=== PATIENT | female | born 1940 | race Two or more races ===

== ENCOUNTER 2021-12-05 14:44 | Inpatient (IN) | payer OTHER ==
[~2021-12-05] VITALS: Ht 157.5 cm; Wt 62.9 kg
[2021-12-05] MEDS ORDERED: hydrALAZINE HCL 20 MG/ML VL IV ONE (16:00)
[2021-12-05] MEDS ORDERED: NITROGLYCERIN 0.4 MG SL TAB SL ONE (16:30)
[2021-12-05 16:45] LABS: Basophils # (auto) 0 10 ^3/uL (0-0.2); Basophils % (auto) 0.3 % (0.0-2.0); Eosinophils # (auto) 0 10 ^3/uL (0-0.8); Eosinophils % (auto) 0.1 % (0.0-7.0); Hematocrit 43.2 % (36.0-46.0); Hemoglobin 15.3 g/dL (12.2-16.2); Lymphocytes # (auto) 1.3 10 ^3/uL (0.4-5.4); Lymphocytes % (auto) 17.2 % (10.0-50.0); Mean Corpuscular Hemoglobin 33.1 pg (28.0-32.0); Mean Corpuscular Hgb Conc. 35.5 g/dL (32.0-36.0); Mean Corpuscular Volume 93.3 fL (80.0-100.0); Monocytes # (auto) 0.4 10 ^3/uL (0-1.3); Monocytes % (auto) 5.5 % (0.0-12.0); Neutrophils # (auto) 5.6 10 ^3/uL (1.6-8.6); Neutrophils % (auto) 76.9 % (37.0-80.0); Red Blood Cells 4.63 10^6/uL (4.0-5.20); Red Cell Distribution Width 13.8 % (11.8-14.3); White Blood Cell 7.3 10^3/uL (4.4-10.8)
[2021-12-05] MEDS ORDERED: cloNIDine HCL 0.1 MG TAB PO ONE (17:00)
[2021-12-05] MEDS ORDERED: amLODIPine BESYLATE 5 MG TAB PO ONE (17:00)
[2021-12-05 17:06] LABS: Albumin 4.1 g/dL (3.4-5.0); Calcium 9.5 mg/dL (8.5-10.1); Potassium 4.6 mmol/L (3.5-5.1)
[2021-12-05 17:08] LABS: Bilirubin, Total 0.4 mg/dL (0.2-1.0); Total Protein 7.4 g/dL (6.4-8.2)
[2021-12-05] MEDS ORDERED: ALPRAZolam 0.5 MG TAB PO ONE (18:45)
[2021-12-05] MEDS ORDERED: SODIUM CHLORIDE 0.9% 500 ML IV ONE (19:45)
[2021-12-05] MEDS ORDERED: DEXTROSE (50%) 50ML SYRG IV PRN (20:00)
[2021-12-05 21:30] VITALS: BP 138/61
[2021-12-05] MEDS ORDERED: InsuLIN REG 1unit/0.01ml Soln (100units/ml) SC SCH (22:00)
[2021-12-05] MEDS: ACCU-CHEK COMFORT CURVE STRIP VI SCH (22:04)
[2021-12-05 22:28] VITALS: BP 138/61
[2021-12-05] MEDS ORDERED: CLON0.1T PO (22:36)
[2021-12-05] MEDS ORDERED: ALPR0.5T8 PO (22:36)
[2021-12-05] MEDS ORDERED: MET50T PO (22:36)
[2021-12-05] MEDS ORDERED: LOSA-69 PO (22:36)
[2021-12-06] VITALS (13 sets, daily range): BP systolic 122–260; BP diastolic 50–96
[2021-12-06] MEDS ORDERED: cloNIDine HCL 0.1 MG TAB PO ONE ×2 (05:15→15:30)
[2021-12-06] MEDS ORDERED: ALPRAZolam 0.5 MG TAB PO ONE (05:15)
[2021-12-06 05:26] LABS: Basophils # (auto) 0 10 ^3/uL (0-0.2); Basophils % (auto) 0.6 % (0.0-2.0); Eosinophils # (auto) 0 10 ^3/uL (0-0.8); Eosinophils % (auto) 0.8 % (0.0-7.0); Hematocrit 40.3 % (36.0-46.0); Hemoglobin 14.3 g/dL (12.2-16.2); Lymphocytes # (auto) 1.7 10 ^3/uL (0.4-5.4); Lymphocytes % (auto) 38.3 % (10.0-50.0); Mean Corpuscular Hgb Conc. 35.5 g/dL (32.0-36.0); Monocytes # (auto) 0.5 10 ^3/uL (0-1.3); Monocytes % (auto) 10.4 % (0.0-12.0); Neutrophils # (auto) 2.2 10 ^3/uL (1.6-8.6); Neutrophils % (auto) 49.9 % (37.0-80.0); Red Blood Cells 4.33 10^6/uL (4.0-5.20); Red Cell Distribution Width 14.1 % (11.8-14.3); White Blood Cell 4.4 10^3/uL (4.4-10.8)
[2021-12-06 05:41] LABS: Albumin 3.8 g/dL (3.4-5.0); Calcium 9.4 mg/dL (8.5-10.1); Potassium 3.6 mmol/L (3.5-5.1)
[2021-12-06 05:43] LABS: BUN/Creatinine Ratio 17.3
[2021-12-06 05:46] LABS: Bilirubin, Total 0.5 mg/dL (0.2-1.0); Total Protein 7.2 g/dL (6.4-8.2)
[2021-12-06 05:52] LABS: Urine Bacteria FEW /hpf (None Seen); Urine Blood Negative /uL (Negative); Urine Hyaline Cast FEW /lpf (0 - 2); Urine Mucus FEW (None Seen); Urine Specific Gravity 1.007 (1.001-1.035); Urine WBC 5 /hpf (0 - 5)
[2021-12-06] MEDS: InsuLIN REG 1unit/0.01ml Soln (100units/ml) SC SCH ×2 (06:37→11:30)
[2021-12-06] MEDS: ACCU-CHEK COMFORT CURVE STRIP VI SCH (06:37)
[2021-12-06] MEDS: ENOXAPARIN SOD 40 MG/0.4 ML SYRINGE SC SCH ×2 (09:26→10:00)
[2021-12-06 13:16] LABS: Cholesterol 152 mg/dL (< 200); HDL Cholesterol 74 mg/dL (40-59); LDL Cholesterol 67 mg/dL (< 100); Triglycerides 37 mg/dL (< 150)
[2021-12-06] MEDS: METOPROLOL TARTRATE 50 MG TAB PO SCH ×2 (13:37→22:00)
[2021-12-06] MEDS: LOSARTAN POTASSIUM 50 MG TAB PO SCH ×2 (13:37→21:10)
[2021-12-06] MEDS: ALPRAZolam 0.5 MG TAB PO SCH ×2 (13:38→21:10)
[2021-12-06] MEDS ORDERED: hydrALAZINE HCL 20 MG/ML VL IV ONE (15:00)
[2021-12-06] MEDS ORDERED: cloNIDine 0.3 mg/24hr 7DAY PATCH TD ONE (15:30)
[2021-12-06] MEDS: cloNIDine HCL 0.1 MG TAB PO SCH (21:11)
[2021-12-07] VITALS (38 sets, daily range): BP systolic 88–205; BP diastolic 39–88
[2021-12-07] MEDS: ALPRAZolam 0.5 MG TAB PO SCH ×3 (05:06→21:09)
[2021-12-07] MEDS: cloNIDine HCL 0.1 MG TAB PO SCH ×2 (09:36→21:07)
[2021-12-07] MEDS: LOSARTAN POTASSIUM 50 MG TAB PO SCH ×2 (09:37→21:08)
[2021-12-07] MEDS: METOPROLOL TARTRATE 50 MG TAB PO SCH ×2 (09:38→21:09)
[2021-12-07] MEDS: ENOXAPARIN SOD 40 MG/0.4 ML SYRINGE SC SCH (09:40)
[2021-12-07] MEDS ORDERED: DOXAZOSIN MESYL 2 MG TAB PO ONE (13:30)
[2021-12-07] MEDS ORDERED: cefTRIAXone 1GM/50ML D5W 50 ML IV ONE (13:45)
[2021-12-08] VITALS (54 sets, daily range): BP systolic 85–248; BP diastolic 37–122
[2021-12-08] MEDS: ALPRAZolam 0.5 MG TAB PO SCH ×3 (05:47→21:05)
[2021-12-08 06:23] LABS: Potassium 3.7 mmol/L (3.5-5.1)
[2021-12-08 06:35] LABS: BUN/Creatinine Ratio 32.1; Calcium 9.4 mg/dL (8.5-10.1)
[2021-12-08] MEDS: LOSARTAN POTASSIUM 50 MG TAB PO SCH ×2 (09:25→21:06)
[2021-12-08] MEDS: cloNIDine HCL 0.1 MG TAB PO SCH ×2 (09:26→21:07)
[2021-12-08] MEDS: ENOXAPARIN SOD 40 MG/0.4 ML SYRINGE SC SCH (10:00)
[2021-12-08] MEDS: METOPROLOL TARTRATE 50 MG TAB PO SCH ×2 (10:56→21:06)
[2021-12-08] MEDS: DOXAZOSIN MESYL 2 MG TAB PO SCH (10:57)
[2021-12-08] MEDS: cefTRIAXone 1GM/50ML D5W 50 ML IV SCH (10:57)
[2021-12-08] MEDS ORDERED: DOCUSATE SOD 100 MG CAP PO PRN (12:45)
[2021-12-09] VITALS (16 sets, daily range): BP systolic 87–216; BP diastolic 37–101
[2021-12-09] MEDS: ALPRAZolam 0.5 MG TAB PO SCH ×3 (05:33→22:00)
[2021-12-09] MEDS: DOXAZOSIN MESYL 2 MG TAB PO SCH (09:00)
[2021-12-09] MEDS: cefTRIAXone 1GM/50ML D5W 50 ML IV SCH (09:00)
[2021-12-09] MEDS: cloNIDine HCL 0.1 MG TAB PO SCH ×2 (09:01→22:00)
[2021-12-09] MEDS: LOSARTAN POTASSIUM 50 MG TAB PO SCH ×2 (09:01→22:00)
[2021-12-09] MEDS: ENOXAPARIN SOD 40 MG/0.4 ML SYRINGE SC SCH ×3 (09:02→10:00)
[2021-12-09] MEDS: METOPROLOL TARTRATE 50 MG TAB PO SCH ×2 (09:02→22:00)
[2021-12-09] MEDS ORDERED: LACTULOSE 20Gm/30ML SOLN PO ONE (10:30)
[2021-12-09] MEDS ORDERED: POLYETHYLENE GLYCOL 17 GM PWDR PO ONE (10:30)
[2021-12-09] MEDS ORDERED: MINOXIDIL 2.5 MG TAB PO ONE (18:30)
[2021-12-09] MEDS ORDERED: NIFEdipine ER 30 MG TAB PO ONE (19:00)
[2021-12-10 05:00] VITALS: BP 182/77
[2021-12-10] MEDS ORDERED: MINOXIDIL 2.5 MG TAB PO SCH (06:30)
[2021-12-10] MEDS: ALPRAZolam 0.5 MG TAB PO SCH ×3 (06:32→22:09)
[2021-12-10 09:00] VITALS: BP 116/66
[2021-12-10] MEDS: cloNIDine HCL 0.1 MG TAB PO SCH ×2 (09:55→22:08)
[2021-12-10] MEDS: METOPROLOL TARTRATE 50 MG TAB PO SCH ×2 (09:56→22:09)
[2021-12-10] MEDS: LOSARTAN POTASSIUM 50 MG TAB PO SCH ×2 (09:56→22:00)
[2021-12-10] MEDS: ENOXAPARIN SOD 40 MG/0.4 ML SYRINGE SC SCH ×2 (09:56→10:00)
[2021-12-10] MEDS ORDERED: NIFEdipine ER 30 MG TAB PO SCH (10:00)
[2021-12-10 13:00] VITALS: BP_SYST 168; BP_SYST 99; BP_DIAS 65; BP_DIAS 73
[2021-12-10 16:58] VITALS: BP 158/74
[2021-12-10] MEDS: MINOXIDIL 2.5 MG TAB PO SCH (18:15)
[2021-12-10 22:00] VITALS: BP 152/74
[2021-12-11] VITALS (7 sets, daily range): BP systolic 109–254; BP diastolic 39–134
[2021-12-11] MEDS ORDERED: cloNIDine HCL 0.1 MG TAB PO ONE (05:30)
[2021-12-11] MEDS: ALPRAZolam 0.5 MG TAB PO SCH ×3 (06:03→20:56)
[2021-12-11] MEDS: MINOXIDIL 2.5 MG TAB PO SCH ×2 (06:30→18:21)
[2021-12-11] MEDS: cloNIDine HCL 0.1 MG TAB PO SCH ×3 (09:37→22:40)
[2021-12-11] MEDS: LOSARTAN POTASSIUM 50 MG TAB PO SCH ×2 (09:37→22:42)
[2021-12-11] MEDS: METOPROLOL TARTRATE 50 MG TAB PO SCH ×2 (09:38→22:42)
[2021-12-11] MEDS ORDERED: cloNIDine HCL 0.1 MG TAB PO SCH (10:00)
[2021-12-12 05:00] VITALS: BP 140/89
[2021-12-12] MEDS: cloNIDine HCL 0.1 MG TAB PO SCH (06:37)
[2021-12-12] MEDS: ALPRAZolam 0.5 MG TAB PO SCH ×2 (06:38→14:00)
[2021-12-12] MEDS: MINOXIDIL 2.5 MG TAB PO SCH (06:39)
[2021-12-12 08:00] VITALS: BP_SYST 109; BP_SYST 124; BP_DIAS 50; BP_DIAS 55
[2021-12-12] MEDS ORDERED: MIN25T PO (09:48)
[2021-12-12] MEDS ORDERED: CLON0.1T PO ×2 (09:48→10:04)
[2021-12-12] MEDS ORDERED: MINO2.5T2 PO (10:04)
[2021-12-12] MEDS: LOSARTAN POTASSIUM 50 MG TAB PO SCH (10:17)
[2021-12-12] MEDS: METOPROLOL TARTRATE 50 MG TAB PO SCH (10:18)
[2021-12-12 11:58] VITALS: BP_SYST 161; BP_SYST 168; BP_DIAS 76; BP_DIAS 77
[2021-12-12 12:00] VITALS: BP 160/84
[2021-12-12] MEDS ORDERED: cloNIDine HCL 0.1 MG TAB PO SCH (12:30)
[2021-12-12 12:32] VITALS: BP 161/77
== END 2021-12-12 16:20 | disposition home or self-care (01) | DRG 305 ==
LOC: EDBD 14:44 → ER 14:55 → TELE-CENTR 19:21 → ICU CENTRL 12-06 16:15 → DOU IN ICU 12-06 21:02 → ICU CENTRL 12-07 05:55 → DOU IN ICU 12-07 20:19 → ICU CENTRL 12-07 20:59 → TELE-CENTR 12-09 02:55
PROVIDERS: ADMIT Registered Nurse; ATTEND Internal Medicine
DX: I16.0 Hypertensive urgency (principal); N39.0 Urinary tract infection, site not specified; E87.0 Hyperosmolality and hypernatremia; E87.1 Hypo-osmolality and hyponatremia; E11.65 Type 2 diabetes mellitus with hyperglycemia; E11.22 Type 2 diabetes mellitus with diabetic chronic kidney disease; K21.9 Gastro-esophageal reflux disease without esophagitis; N18.2 Chronic kidney disease, stage 2 (mild); F41.9 Anxiety disorder, unspecified; Z66 Do not resuscitate; H91.90 Unspecified hearing loss, unspecified ear; Z20.822 Contact with and (suspected) exposure to COVID-19; R00.0 Tachycardia, unspecified; I12.9 Hypertensive chronic kidney disease with stage 1 through stage 4 chronic kidney disease, or unspecified chronic kidney disease; Z80.3 Family history of malignant neoplasm of breast; Z82.49 Family history of ischemic heart disease and other diseases of the circulatory system; Z83.3 Family history of diabetes mellitus; Z88.6 Allergy status to analgesic agent; Z88.1 Allergy status to other antibiotic agents; Z88.5 Allergy status to narcotic agent; Z88.2 Allergy status to sulfonamides; Z88.8 Allergy status to other drugs, medicaments and biological substances; Z79.84 Long term (current) use of oral hypoglycemic drugs
CPT/HCPCS: 36415; 70450; 71045; 80048; 80053; 80061; 81001; 82962; 83036; 84443; 84484; 85025; 85379; 87081; 87086; 93005; 93306; 93886; 96360; G0378; J0696